=== PATIENT | male | born 1990 | race Caucasian/White ===

== ENCOUNTER 2024-09-22 15:50 | Emergency (ER) | payer OTHER, SELFPAY ==
[2024-09-22 16:03] VITALS: BP 128/77; PULSE 81; RESP 14; TEMP 37; O2SAT 99
--- NOTE | 2024-09-22 16:16 | ED_ITS ---
HPI - Wound/Laceration General Stated Complaint: cyst on neck Source: patient Mode of arrival: ambulatory Limitations: no limitations History of Present Illness HPI narrative: 34-year-old male presented for complaint of an abscess to the left neck worsening over the past few days. He states he has had a cyst at the site which is usually pea-sized and skin colored when it is not flared. Says it flares occasionally and requires antibiotics. Says he may have irritated it at the gym. Has not tried any treatment for the symptoms. Denies n/v/d/f/c. Related Data Allergies Allergy/AdvReac Type Severity Reaction Status Date / Time No Known Allergies Allergy Verified 09/22/24 16:39 Review of Systems Review of Systems: CONSTITUTIONAL: Denies body aches, fever, chills, or sweats. EYES: Denies visual changes, redness, or discharge. ENT: Denies rhinorrhea, congestion CARDIOVASCULAR: Denies chest pain, palpitations, or edema. RESPIRATORY: Denies cough or dyspnea. GASTROINTESTINAL: Denies abdominal pain, nausea, vomiting, or diarrhea. SKIN: per HPI MUSCULOSKELETAL: Denies back pain, joint pain, or myalgia. NEUROLOGIC: Denies headache, numbness, tingling, or weakness. [facility] Family History Family History (Updated 06/13/18 @ 09:28 by DOCTOR UNKNOWN) Mother Family history of pancreatic disease Social History Social History Alcohol intake: current Comments At time of signature, I have reviewed and agree with nursing past medical, surgical, social and family history unless otherwise noted. Please see nursing chart for further information. There is no relevant family history pertinent to the presenting complaint Exam Narrative: GENERAL: Well-appearing EYES: conjunctivae clear, and EOMI. ENT: Mucous membranes moist. Oropharynx without edema, erythema or lesions. NECK: Supple. No lymphadenopathy CHEST: Clear to auscultation. HEART: Regular rate and rhythm. SKIN: Warm, dry. Left clavicle with abscess [id number], minimal fluctuance, no active drainage or streaking. NEURO: Alert and oriented x3. Course Course Emergency Course: Patient is aware of diagnosis, understands and agrees to treatment plan. Anticipatory guidance given. Patient agrees to follow-up as directed and is aware of reasons to seek care at the emergency department. Portions of this record may have been created with voice recognition software Level of Care: Express Care Visit Vital Signs Vital signs: Vital Signs Temperature 98.6 F 09/22/24 16:03 Pulse Rate 81 09/22/24 16:03 Respiratory Rate 14 09/22/24 16:03 Blood Pressure 128/77 09/22/24 16:03 Pulse Oximetry 99 09/22/24 16:03 Oxygen Delivery Room Air 09/22/24 16:03 Temperature 98.6 F 09/22/24 16:03 Pulse Rate 81 09/22/24 16:03 Respiratory Rate 14 09/22/24 16:03 Blood Pressure 128/77 09/22/24 16:03 Pulse Oximetry 99 09/22/24 16:03 Oxygen Delivery Room Air 09/22/24 16:03 Reviewed MDM - Wound/Laceration MDM Narrative Medical decision making narrative: Discussed physical exam findings consistent with abscess to the left clavicular area. No indication for I and D at this time, Rx antibiotic sent.. Advised supportive measures and signs/symptoms to go to the ER. Pt is appropriate for outpt treatment and f/u. Differential Diagnosis Differential diagnosis: Likely abscess and other (Cellulitis) Discharge Plan Discharge Clinical Impression: Abscess Patient Disposition: Home, Self-Care Condition: Stable Instructions: Antibiotic Form, Abscess (ED) Additional Instructions: Cleanse the area with warm soapy water at least daily. Warm compresses at least 4 times a day to the site to help expel any additional drainage. Keep your wound covered while draining Take antibiotic as directed Tylenol and ibuprofen every 8 hours for pain as needed Follow up with your primary care physician in 3 days for a wound check. Go to the ER for worsening symptoms or concerns Patient Language: Danish Prescriptions: New clindamycin HCl [Cleocin HCl] 300 mg capsule 300 mg PO Q8H 7 Days Qty: 21 0RF Follow-up/Referrals: PHYSICIAN,[employer] [Primary Care Provider] - Time of Disposition: 16:24
== END 2024-09-22 16:30 | disposition home or self-care (01) ==
PROVIDERS: Emergency Provider Nurse Practitioner Family
DX: L02.11 Cutaneous abscess of neck (principal)
CPT/HCPCS: 99203; G0463